=== PATIENT | female | born 1935 | race Caucasian/White ===

== ENCOUNTER 2016-09-12 09:38 | Inpatient (IN) | payer BC, MEDICARE ==
[~2016-09-12] VITALS: Ht 165.1 cm; Wt 102.8 kg
[2016-09-12] MEDS ORDERED: SODIUM CHLORIDE 0.9% 1,000 ML IV ONE (09:46)
[2016-09-12] MEDS ORDERED: PANTOPRAZOLE 80 MG in SODIUM CHLORIDE 0.9% 100 ML IV SCH (09:46)
[2016-09-12] MEDS ORDERED: PANTOPRAZOLE 80 MG in SODIUM CHLORIDE 0.9% 50 ML IVPB ONE (09:46)
[2016-09-12] MEDS ORDERED: BISO10TA10 PO (09:58)
[2016-09-12] MEDS ORDERED: RASA0.5T PO (09:58)
[2016-09-12] MEDS ORDERED: HYDR-3240 PO (09:58)
[2016-09-12] MEDS ORDERED: CARB1TAB47 PO (09:58)
[2016-09-12] MEDS ORDERED: CARB1TAB44 PO (09:58)
[2016-09-12] MEDS ORDERED: LEVO112T4 PO (09:58)
[2016-09-12] MEDS ORDERED: LAMO100T5 PO (09:58)
[2016-09-12] MEDS ORDERED: LEVE10007 PO (09:58)
[2016-09-12] MEDS ORDERED: ATOR20TA9 PO (09:58)
[2016-09-12] MEDS ORDERED: HYDR12.53 PO (09:58)
[2016-09-12] MEDS ORDERED: SODIUM CHLORIDE FLUSH 10ML SYR IVF ONE (10:00)
[2016-09-12 11:01] LABS: ASPARTATE AMINO TRANSFERASE 8 U/L (15-37); BLOOD UREA NITROGEN 17 mg/dL (7-18)
[2016-09-12] MEDS: PANTOPRAZOLE 80 MG in SODIUM CHLORIDE 0.9% 100 ML IV SCH (13:30)
[2016-09-12 13:35] VITALS: BP 131/77
[2016-09-12] MEDS: INSULIN REGULAR 100 UNITS/ML, 3ML VIAL SQ-INSULIN SCH ×2 (16:00→21:00)
[2016-09-12] MEDS: CARBIDOPA/LEVODOPA 25 MG/100 MG TABLET PO SCH ×2 (17:26→22:44)
[2016-09-12 19:23] VITALS: BP 125/61
[2016-09-12 21:03] VITALS: BP 131/77
[2016-09-12] MEDS: LAMOTRIGINE 100 MG TABLET PO SCH (22:38)
[2016-09-12] MEDS: HYDROcodone/APAP 5/325 TABLET PO PRN (22:38)
[2016-09-12] MEDS: LEVETIRACETAM 500 MG TABLET PO SCH (22:39)
[2016-09-12] MEDS: CARBIDOPA/LEVODOPA CR 50 MG/200 MG TABLET PO SCH (22:42)
[2016-09-13 00:51] VITALS: BP 96/59
[2016-09-13] MEDS: PANTOPRAZOLE 80 MG in SODIUM CHLORIDE 0.9% 100 ML IV SCH ×2 (04:32→18:39)
[2016-09-13] MEDS: CARBIDOPA/LEVODOPA 25 MG/100 MG TABLET PO SCH ×4 (06:11→22:06)
[2016-09-13] MEDS: INSULIN REGULAR 100 UNITS/ML, 3ML VIAL SQ-INSULIN SCH ×4 (07:00→21:00)
[2016-09-13 07:30] VITALS: BP 114/76
[2016-09-13] MEDS: RASAGILINE MESYLATE 1 MG HOMEMEDPO SCH (09:00)
[2016-09-13] MEDS: BISOPROLOL FUMARATE 5 MG HOMEMEDPO SCH (09:00)
[2016-09-13 09:16] LABS: BLOOD UREA NITROGEN 13 mg/dL (7-18)
[2016-09-13 09:20] LABS: ASPARTATE AMINO TRANSFERASE 10 U/L (15-37)
[2016-09-13] MEDS ORDERED: METOPROLOL TARTRATE 25 MG TABLET PO ONE (12:00)
[2016-09-13] MEDS ORDERED: METOCLOPRAMIDE 5 MG/ML, 2ML IV PRN (12:30)
[2016-09-13] MEDS ORDERED: LABETALOL 5MG/ML, 20ML IV PRN (12:30)
[2016-09-13] MEDS ORDERED: MEPERIDINE/PF 25MG/0.5ML IVPush PRN (12:30)
[2016-09-13] MEDS ORDERED: HYDROmorphone 1 MG/ML, 1ML IV PRN (12:30)
[2016-09-13] MEDS ORDERED: ACETAMINOPHEN 325 MG TABLET PO PRN (12:30)
[2016-09-13] MEDS ORDERED: FENTANYL PF 100 MCG/2ML IV PRN (12:30)
[2016-09-13] MEDS ORDERED: OXYcodone 5 MG/5 ML ORAL.SOL UDC PO PRN (12:30)
[2016-09-13] MEDS ORDERED: ONDANSETRON 2MG/ML, 2ML IVPush PRN (12:30)
[2016-09-13] MEDS ORDERED: PROMETHAZINE 25 MG/ML, 1ML IV PRN (12:30)
[2016-09-13] MEDS ORDERED: hydrALAzine 20 MG/ML, 1ML IV PRN (12:30)
[2016-09-13] MEDS ORDERED: MIDAZOLAM 1 MG/ML, 2ML IV PRN (12:30)
[2016-09-13] MEDS ORDERED: PROPOFOL 10 MG/ML, 20ML ONE (12:55)
[2016-09-13] MEDS: LEVOTHYROXINE 112 MCG TABLET PO SCH (14:46)
[2016-09-13] MEDS: LEVETIRACETAM 500 MG TABLET PO SCH ×2 (14:46→22:06)
[2016-09-13] MEDS: LAMOTRIGINE 100 MG TABLET PO SCH ×2 (14:46→22:06)
[2016-09-13 14:52] VITALS: BP 147/76
[2016-09-13] MEDS: HYDROcodone/APAP 5/325 TABLET PO PRN (16:26)
[2016-09-13] MEDS: CARBIDOPA/LEVODOPA CR 50 MG/200 MG TABLET PO SCH (22:06)
[2016-09-13 22:19] VITALS: BP 129/66
[2016-09-14 01:47] VITALS: BP 98/58
[2016-09-14] MEDS: CARBIDOPA/LEVODOPA 25 MG/100 MG TABLET PO SCH ×2 (04:27→09:59)
[2016-09-14] MEDS: LEVOTHYROXINE 112 MCG TABLET PO SCH (04:27)
[2016-09-14] MEDS: PANTOPRAZOLE 80 MG in SODIUM CHLORIDE 0.9% 100 ML IV SCH (04:27)
[2016-09-14 05:00] LABS: BLOOD UREA NITROGEN 11 mg/dL (7-18)
[2016-09-14] MEDS: INSULIN REGULAR 100 UNITS/ML, 3ML VIAL SQ-INSULIN SCH ×2 (07:00→12:09)
[2016-09-14] MEDS ORDERED: POTASSIUM CHLORIDE 20 MEQ TAB.ER.PRT PO ONE (07:30)
[2016-09-14] MEDS: HYDROcodone/APAP 5/325 TABLET PO PRN (08:11)
[2016-09-14 08:14] VITALS: BP 113/71
[2016-09-14] MEDS: RASAGILINE MESYLATE 1 MG HOMEMEDPO SCH (09:00)
[2016-09-14] MEDS: BISOPROLOL FUMARATE 5 MG HOMEMEDPO SCH (09:00)
[2016-09-14] MEDS: LEVETIRACETAM 500 MG TABLET PO SCH (09:58)
[2016-09-14] MEDS: LAMOTRIGINE 100 MG TABLET PO SCH (09:59)
[2016-09-14 13:04] VITALS: BP 104/68
[2016-09-14] MEDS ORDERED: PANT40TA3 PO (14:32)
== END 2016-09-14 17:27 | disposition home or self-care (01) | DRG 378 ==
LOC: ED 10:28 → EDIP 11:46 → 3NW 13:40
PROVIDERS: ADMIT Internal Medicine; ATTEND Internal Medicine
PROC: 0T9B70Z Drainage of Bladder with Drainage Device, Via Natural or Artificial Opening (ICD-10-PCS; 2016-09-12)
PROC: 0DB68ZX Excision of Stomach, Via Natural or Artificial Opening Endoscopic, Diagnostic (ICD-10-PCS; principal; 2016-09-13 12:30)
DX: K92.2 Gastrointestinal hemorrhage, unspecified (principal); K22.10 Ulcer of esophagus without bleeding; K44.9 Diaphragmatic hernia without obstruction or gangrene; D64.9 Anemia, unspecified; E03.9 Hypothyroidism, unspecified; E78.5 Hyperlipidemia, unspecified; I10 Essential (primary) hypertension; G20 Parkinson's disease; J44.9 Chronic obstructive pulmonary disease, unspecified; K21.0 Gastro-esophageal reflux disease with esophagitis; K22.2 Esophageal obstruction; K25.9 Gastric ulcer, unspecified as acute or chronic, without hemorrhage or perforation; R32 Unspecified urinary incontinence; K59.00 Constipation, unspecified; R56.9 Unspecified convulsions; R73.03 Prediabetes; Z83.2 Family history of diseases of the blood and blood-forming organs and certain disorders involving the immune mechanism; Z99.81 Dependence on supplemental oxygen; Z88.2 Allergy status to sulfonamides
CPT/HCPCS: 36415; 71010; 80048; 80053; 81003; 82962; 83605; 85014; 85018; 85025; 85610; 86850; 86900; 87040; 88305; 93005; 96365; J2704; C9113; J7030

== ENCOUNTER → 2017-07-05 | Outpatient (CLI) | payer MEDICARE ==
[~2017-07-05] MED LIST: ATOR20TA9 PO; BISO10TA10 PO; CARB1TAB44 PO; CARB1TAB47 PO; HYDR-3240 PO; HYDR12.53 PO; LAMO100T5 PO; LEVE10007 PO; LEVO112T4 PO; PANT40TA3 PO; PANT40TA5 PO; RASA0.5T PO
== END | disposition home or self-care (01) ==
LOC: RAD 09:45
PROVIDERS: ATTEND Nurse Practitioner Family
DX: R05 Cough (principal); R07.9 Chest pain, unspecified
CPT/HCPCS: 71046

== ENCOUNTER 2019-06-10 11:46 | Inpatient (IN) | payer MEDICARE ==
[~2019-06-10] VITALS: Ht 165.1 cm; Wt 91.1 kg
[~2019-06-10 11:46] MED LIST changes: +ATOR20TA37 PO; -ATOR20TA9 PO; +HYDR12.517 PO; -HYDR12.53 PO
[2019-06-10 12:15] LABS: BASOPHILS % (AUTO) 0 % (0-1); EOSINOPHILS # (AUTO) 0.15 x10^3/uL (0-0.4); EOSINOPHILS % (AUTO) 1 % (1-7); LYMPHOCYTES # (AUTO) 1.81 x10^3/uL (1-3.4); LYMPHOCYTES % (AUTO) 13 % (22-44); MD NO; MEAN CORPUSCULAR HEMOGLOBIN 28.3 pg (27.0-34.8); MEAN CORPUSCULAR HGB CONC 31.9 g/dL (32.4-35.8); MEAN CORPUSCULAR VOLUME 88.7 fL (80-100); MEAN PLATELET VOLUME 7.5 fL (7.4-10.4); MONOCYTES # (AUTO) 0.62 x10^3/uL (0.2-0.8); MONOCYTES % (AUTO) 4 % (2-9); NEUTROPHILS # (AUTO) 11.72 x10^3/uL (1.8-6.8); NEUTROPHILS % (AUTO) 82 % (42-75); PLATELET COUNT 330 x10^3/uL (130-400); RED BLOOD COUNT 4.69 x10^6/uL (3.82-5.3); RED CELL DISTRIBUTION WIDTH 15.9 % (9.6-15.2)
[2019-06-10 12:24] LABS: ALBUMIN 3.4 g/dL (3.4-5.0); ANION GAP 8 mmol/L (5-15); CHLORIDE 103 mmol/L (98-107); CREATININE 0.98 mg/dL (0.55-1.02)
[2019-06-10] MEDS ORDERED: HYDROcodone/APAP 5/325 TABLET ONE (13:11)
--- NOTE | 2019-06-10 13:13 | NUR ---
MEDICATED FOR ALL-OVER BODY PAIN PER ORDERS. BREATHING EVEN, UNLABORED AND IN NO DISTRESS. VISITOR AT BEDSIDE.
[2019-06-10] MEDS ORDERED: HYDROcodone/APAP 5/325 TABLET PO ONE (13:30)
--- NOTE | 2019-06-10 14:01 | NUR ---
BREAK RN: PT IS NOT READY FOR DISCHARGE. PT IS 82% RA. PT PLACED ON 3L NC PT IS NOW 95%. VS STABLE. FAMILY AT BEDSIDE. AWARE.
--- NOTE | 2019-06-10 14:16 | NUR ---
DR DINH IN ROOM TALKING WITH PATIENT
--- NOTE | 2019-06-10 14:23 | NUR ---
REPORT GIVEN TO SHANNON KHAN
[2019-06-10] MEDS ORDERED: ALBUTEROL/IPRATROPIUM 2.5MG/0.5MG, 3 ML NEB ONE (14:30)
--- NOTE | 2019-06-10 14:43 | NUR ---
PT AWAITING BREATHING TX FROM RT. PHARMACEUTICAL BOTANIST REMAINS AT BEDSIDE
[2019-06-10] MEDS ORDERED: ALBUTEROL/IPRATROPIUM 2.5MG/0.5MG, 3 ML ONE (15:00)
--- NOTE | 2019-06-10 15:25 | NUR ---
PT NEEDS IV FOR CT EXAM
--- NOTE | 2019-06-10 15:53 | NUR ---
AFTER BREATHING TREATMENT, OXYGEN SATURATION ON RA CHECK AND NOTED TO BE 85 PERCENT. INITIALLY PT RESISTANT TO ADMISSION BUT AFTER DISCUSSING IT WITH MD AND RN AND , PT CONCEDED TO ADMISSION. IV ESTABLISHED FOR CT
[2019-06-10] MEDS ORDERED: CARBIDOPA/LEVODOPA 25 MG/100 MG TABLET PO ONE (16:30)
--- NOTE | 2019-06-10 16:51 | NUR ---
WHILE AT CT STARTED A NEW LINE AT RIGHT AC NOTED LAC IV NOT FLUSHING WELL.
[2019-06-10] MEDS ORDERED: METF500T17 PO (17:08)
[2019-06-10] MEDS ORDERED: POTA10PI2 PO (17:08)
[2019-06-10] MEDS ORDERED: RASA1TAB2 PO (17:08)
[2019-06-10] MEDS ORDERED: LEVO125T5 PO (17:08)
--- NOTE | 2019-06-10 17:32 | NUR ---
UPON RETURN FROM CT MEDICATED PER JUL FOR PARKINSON'S.
--- NOTE | 2019-06-10 18:00 | NUR ---
BRIEFS REMOVED AND PUREWICK PLACED. AT BEDSIDE.
--- NOTE | 2019-06-10 18:22 | NUR ---
REPORT TO JOY ORTEGA. PT TO BE TRANSFERRED TO FLOOR
[2019-06-10] MEDS ORDERED: HYDROcodone/APAP 5/325 TABLET PO PRN (18:30)
[2019-06-10] MEDS ORDERED: BISACODYL 10 MG SUPP PR PRN (18:30)
[2019-06-10] MEDS ORDERED: POLYETHYLENE GLYCOL 17 GM PACKET PO PRN (18:30)
[2019-06-10] MEDS ORDERED: ONDANSETRON ODT 4 MG PO PRN (18:30)
[2019-06-10] MEDS ORDERED: ACETAMINOPHEN 325 MG TABLET PO PRN (18:30)
[2019-06-10] MEDS ORDERED: OMNIPAQUE 350 MG/ML, 100ML BOTTLE ONE (19:15)
[2019-06-10 20:32] VITALS: BP 117/66
[2019-06-10] MEDS: metFORMIN 500 MG TABLET PO SCH (21:00)
[2019-06-10] MEDS: LEVETIRACETAM 500 MG TABLET PO SCH (21:16)
[2019-06-10] MEDS: HEPARIN 5,000 UNITS/ML, 1ML SQ SCH (21:17)
[2019-06-10] MEDS: LAMOTRIGINE 100 MG TABLET PO SCH (21:17)
[2019-06-10] MEDS: ATORVASTATIN 20 MG TABLET PO SCH (21:17)
[2019-06-10] MEDS: SODIUM CHLORIDE FLUSH 10ML SYR IVF SCH (21:19)
[2019-06-10] MEDS: CARBIDOPA/LEVODOPA CR 50 MG/200 MG TABLET PO SCH (21:22)
[2019-06-10] MEDS: CARBIDOPA/LEVODOPA 25 MG/100 MG TABLET PO SCH (21:22)
[2019-06-11] MEDS: HYDROcodone/APAP 5/325 TABLET PO PRN ×5 (00:41→20:27)
[2019-06-11 02:07] VITALS: BP 106/65
[2019-06-11] MEDS ORDERED: ALBUTEROL SULFATE 2.5 MG/3 ML NPPB PRN (04:30)
[2019-06-11] MEDS: HEPARIN 5,000 UNITS/ML, 1ML SQ SCH ×3 (05:12→20:26)
[2019-06-11] MEDS: CARBIDOPA/LEVODOPA 25 MG/100 MG TABLET PO SCH ×4 (06:06→20:27)
[2019-06-11 06:32] LABS: BASOPHILS # (AUTO) 0.04 x10^3/uL (0-0.1); BASOPHILS % (AUTO) 0 % (0-1); EOSINOPHILS # (AUTO) 0.09 x10^3/uL (0-0.4); EOSINOPHILS % (AUTO) 1 % (1-7); LYMPHOCYTES # (AUTO) 2.14 x10^3/uL (1-3.4); LYMPHOCYTES % (AUTO) 16 % (22-44); MD NO; MEAN CORPUSCULAR HEMOGLOBIN 28.5 pg (27.0-34.8); MEAN CORPUSCULAR HGB CONC 31.8 g/dL (32.4-35.8); MEAN CORPUSCULAR VOLUME 89.9 fL (80-100); MEAN PLATELET VOLUME 7.7 fL (7.4-10.4); MONOCYTES # (AUTO) 0.64 x10^3/uL (0.2-0.8); MONOCYTES % (AUTO) 5 % (2-9); NEUTROPHILS # (AUTO) 10.09 x10^3/uL (1.8-6.8); NEUTROPHILS % (AUTO) 78 % (42-75); PLATELET COUNT 291 x10^3/uL (130-400); RED BLOOD COUNT 4.28 x10^6/uL (3.82-5.3); RED CELL DISTRIBUTION WIDTH 15.7 % (9.6-15.2)
[2019-06-11 06:46] LABS: ANION GAP 10 mmol/L (5-15); CALCIUM 8.7 mg/dL (8.5-10.1); CHLORIDE 100 mmol/L (98-107); CREATININE 0.91 mg/dL (0.55-1.02)
[2019-06-11] MEDS ORDERED: ACETAMINOPHEN 325 MG TABLET PO PRN (07:30)
[2019-06-11 07:56] VITALS: BP 119/71
[2019-06-11] MEDS: SODIUM CHLORIDE FLUSH 10ML SYR IVF SCH ×2 (09:00→20:27)
[2019-06-11] MEDS: RASAGILINE MESYLATE 0.5 MG HOMEMEDPO SCH (09:00)
[2019-06-11] MEDS ORDERED: HYDROCHLOROTHIAZIDE 12.5 MG CAPSULE PO SCH (09:00)
[2019-06-11] MEDS: SENNA/DOCUSATE TABLET PO SCH (10:51)
[2019-06-11] MEDS: metFORMIN 500 MG TABLET PO SCH ×2 (10:51→19:28)
[2019-06-11] MEDS: LEVETIRACETAM 500 MG TABLET PO SCH ×2 (10:51→20:26)
[2019-06-11] MEDS: ATENOLOL 50 MG TABLET PO SCH (10:51)
[2019-06-11] MEDS: LAMOTRIGINE 100 MG TABLET PO SCH ×2 (10:51→20:26)
[2019-06-11] MEDS: LEVOTHYROXINE 125 MCG TABLET PO SCH (10:52)
[2019-06-11] MEDS: LACTOBACILLUS CHEW TABLET PO SCH ×3 (10:52→20:26)
[2019-06-11] MEDS: PANTOPROZOLE 40MG TABLET PO SCH (10:52)
[2019-06-11] MEDS: INSULIN LISPRO 100 UNITS/ML, PEN SQ-INSULIN SCH ×3 (11:00→20:22)
[2019-06-11 13:50] VITALS: BP 120/70
[2019-06-11 14:28] LABS: TROPONIN I < 0.015 ng/mL (0.000-0.045)
[2019-06-11 18:27] VITALS: BP 127/74
[2019-06-11] MEDS: ATORVASTATIN 20 MG TABLET PO SCH (20:26)
[2019-06-11] MEDS: CARBIDOPA/LEVODOPA CR 50 MG/200 MG TABLET PO SCH (20:26)
[2019-06-12 00:52] VITALS: BP 107/55
[2019-06-12] MEDS: HYDROcodone/APAP 5/325 TABLET PO PRN ×5 (02:27→20:15)
[2019-06-12] MEDS: GUAIFENESIN/DM 200-20MG, 10ML UDC PO PRN ×3 (02:27→22:14)
[2019-06-12] MEDS: HEPARIN 5,000 UNITS/ML, 1ML SQ SCH ×3 (05:00→22:14)
[2019-06-12] MEDS: LEVOTHYROXINE 125 MCG TABLET PO SCH (05:06)
[2019-06-12] MEDS: CARBIDOPA/LEVODOPA 25 MG/100 MG TABLET PO SCH ×4 (05:07→20:14)
[2019-06-12] MEDS: metFORMIN 500 MG TABLET PO SCH ×3 (05:19→20:42)
[2019-06-12] MEDS: PANTOPROZOLE 40MG TABLET PO SCH (05:28)
[2019-06-12] MEDS: LEVETIRACETAM 500 MG TABLET PO SCH ×2 (05:28→20:15)
[2019-06-12] MEDS: LACTOBACILLUS CHEW TABLET PO SCH ×3 (05:28→20:14)
[2019-06-12] MEDS: SENNA/DOCUSATE TABLET PO SCH (05:28)
[2019-06-12] MEDS: ATENOLOL 50 MG TABLET PO SCH (05:29)
[2019-06-12] MEDS: LAMOTRIGINE 100 MG TABLET PO SCH ×2 (05:29→20:15)
[2019-06-12] MEDS: RASAGILINE MESYLATE 0.5 MG HOMEMEDPO SCH (05:29)
[2019-06-12] MEDS: INSULIN LISPRO 100 UNITS/ML, PEN SQ-INSULIN SCH ×4 (07:00→20:32)
[2019-06-12 07:06] LABS: ANION GAP 8 mmol/L (5-15); CALCIUM 8.5 mg/dL (8.5-10.1); CHLORIDE 103 mmol/L (98-107); CREATININE 0.92 mg/dL (0.55-1.02)
[2019-06-12 07:31] VITALS: BP 107/67
[2019-06-12 09:24] LABS: BASOPHILS # (AUTO) 0.04 x10^3/uL (0-0.1); BASOPHILS % (AUTO) 0 % (0-1); EOSINOPHILS # (AUTO) 0.24 x10^3/uL (0-0.4); EOSINOPHILS % (AUTO) 3 % (1-7); LYMPHOCYTES # (AUTO) 1.66 x10^3/uL (1-3.4); LYMPHOCYTES % (AUTO) 17 % (22-44); MD NO; MEAN CORPUSCULAR HEMOGLOBIN 29.1 pg (27.0-34.8); MEAN CORPUSCULAR HGB CONC 32.3 g/dL (32.4-35.8); MEAN PLATELET VOLUME 7.9 fL (7.4-10.4); MONOCYTES # (AUTO) 0.42 x10^3/uL (0.2-0.8); MONOCYTES % (AUTO) 4 % (2-9); NEUTROPHILS # (AUTO) 7.21 x10^3/uL (1.8-6.8); NEUTROPHILS % (AUTO) 75 % (42-75); PLATELET COUNT 282 x10^3/uL (130-400); RED BLOOD COUNT 4.19 x10^6/uL (3.82-5.3); RED CELL DISTRIBUTION WIDTH 15.5 % (9.6-15.2)
[2019-06-12] MEDS: SODIUM CHLORIDE 0.9% 1,000 ML IV SCH (09:45)
[2019-06-12] MEDS: SODIUM CHLORIDE FLUSH 10ML SYR IVF SCH ×2 (09:47→20:22)
[2019-06-12 12:57] LABS: RAPID INFLUENZA A Negative (Negative); RAPID INFLUENZA B Negative (Negative)
[2019-06-12 14:40] VITALS: BP 104/67
[2019-06-12 18:54] VITALS: BP 125/81
[2019-06-12] MEDS: ATORVASTATIN 20 MG TABLET PO SCH (20:14)
[2019-06-12] MEDS: CARBIDOPA/LEVODOPA CR 50 MG/200 MG TABLET PO SCH (22:14)
[2019-06-13 02:00] VITALS: BP 112/72
[2019-06-13] MEDS: SODIUM CHLORIDE 0.9% 1,000 ML IV SCH ×2 (02:38→19:33)
[2019-06-13] MEDS: HYDROcodone/APAP 5/325 TABLET PO PRN ×5 (03:27→23:37)
[2019-06-13] MEDS: GUAIFENESIN/DM 200-20MG, 10ML UDC PO PRN (04:11)
[2019-06-13] MEDS: RASAGILINE MESYLATE 0.5 MG HOMEMEDPO SCH (06:00)
[2019-06-13] MEDS: HEPARIN 5,000 UNITS/ML, 1ML SQ SCH ×2 (06:08→16:23)
[2019-06-13 06:11] LABS: BASOPHILS # (AUTO) 0.03 x10^3/uL (0-0.1); BASOPHILS % (AUTO) 0 % (0-1); EOSINOPHILS # (AUTO) 0.39 x10^3/uL (0-0.4); EOSINOPHILS % (AUTO) 4 % (1-7); LYMPHOCYTES # (AUTO) 1.86 x10^3/uL (1-3.4); LYMPHOCYTES % (AUTO) 20 % (22-44); MD NO; MEAN CORPUSCULAR HEMOGLOBIN 28.7 pg (27.0-34.8); MEAN CORPUSCULAR HGB CONC 32.3 g/dL (32.4-35.8); MEAN CORPUSCULAR VOLUME 88.8 fL (80-100); MEAN PLATELET VOLUME 7.8 fL (7.4-10.4); MONOCYTES # (AUTO) 0.53 x10^3/uL (0.2-0.8); MONOCYTES % (AUTO) 6 % (2-9); NEUTROPHILS # (AUTO) 6.42 x10^3/uL (1.8-6.8); NEUTROPHILS % (AUTO) 70 % (42-75); PLATELET COUNT 280 x10^3/uL (130-400); RED BLOOD COUNT 4.14 x10^6/uL (3.82-5.3); RED CELL DISTRIBUTION WIDTH 15.8 % (9.6-15.2)
[2019-06-13] MEDS: LAMOTRIGINE 100 MG TABLET PO SCH ×2 (06:20→20:38)
[2019-06-13] MEDS: PANTOPROZOLE 40MG TABLET PO SCH (06:21)
[2019-06-13] MEDS: LEVETIRACETAM 500 MG TABLET PO SCH ×2 (06:21→20:38)
[2019-06-13] MEDS: SENNA/DOCUSATE TABLET PO SCH (06:21)
[2019-06-13] MEDS: ATENOLOL 50 MG TABLET PO SCH (06:21)
[2019-06-13] MEDS: LEVOTHYROXINE 125 MCG TABLET PO SCH (06:22)
[2019-06-13] MEDS: LACTOBACILLUS CHEW TABLET PO SCH ×3 (06:22→20:38)
[2019-06-13] MEDS: CARBIDOPA/LEVODOPA 25 MG/100 MG TABLET PO SCH ×4 (06:22→20:38)
[2019-06-13 06:39] VITALS: BP 108/68
[2019-06-13] MEDS: INSULIN LISPRO 100 UNITS/ML, PEN SQ-INSULIN SCH ×4 (07:00→19:43)
[2019-06-13] MEDS: SODIUM CHLORIDE FLUSH 10ML SYR IVF SCH ×2 (07:43→19:42)
[2019-06-13] MEDS: metFORMIN 500 MG TABLET PO SCH ×2 (10:13→20:38)
[2019-06-13 12:25] VITALS: BP 115/74
[2019-06-13 18:49] VITALS: BP 123/78
[2019-06-13] MEDS: ATORVASTATIN 20 MG TABLET PO SCH (20:38)
[2019-06-13] MEDS: CARBIDOPA/LEVODOPA CR 50 MG/200 MG TABLET PO SCH ×2 (21:00→23:37)
[2019-06-14 00:20] VITALS: BP 114/75
[2019-06-14] MEDS: HEPARIN 5,000 UNITS/ML, 1ML SQ SCH ×4 (00:30→17:38)
[2019-06-14] MEDS: GUAIFENESIN/DM 200-20MG, 10ML UDC PO PRN (00:55)
[2019-06-14] MEDS: CARBIDOPA/LEVODOPA 25 MG/100 MG TABLET PO SCH ×3 (05:21→13:50)
[2019-06-14] MEDS: HYDROcodone/APAP 5/325 TABLET PO PRN ×3 (05:21→13:56)
[2019-06-14] MEDS: LEVOTHYROXINE 125 MCG TABLET PO SCH (05:21)
[2019-06-14] MEDS: LAMOTRIGINE 100 MG TABLET PO SCH (08:02)
[2019-06-14] MEDS: LEVETIRACETAM 500 MG TABLET PO SCH (08:02)
[2019-06-14] MEDS: ATENOLOL 50 MG TABLET PO SCH (08:02)
[2019-06-14] MEDS: metFORMIN 500 MG TABLET PO SCH (08:02)
[2019-06-14] MEDS: SENNA/DOCUSATE TABLET PO SCH (08:02)
[2019-06-14] MEDS: PANTOPROZOLE 40MG TABLET PO SCH (08:02)
[2019-06-14] MEDS: LACTOBACILLUS CHEW TABLET PO SCH ×2 (08:02→17:37)
[2019-06-14] MEDS: SODIUM CHLORIDE FLUSH 10ML SYR IVF SCH (08:03)
[2019-06-14] MEDS: INSULIN LISPRO 100 UNITS/ML, PEN SQ-INSULIN SCH ×3 (08:03→17:00)
[2019-06-14 08:04] VITALS: BP 130/80
[2019-06-14] MEDS: RASAGILINE MESYLATE 0.5 MG HOMEMEDPO SCH (08:12)
[2019-06-14] MEDS ORDERED: INSU100I11 SQ-INSULIN (09:39)
[2019-06-14] MEDS ORDERED: BISA10SU4 PR (09:39)
[2019-06-14] MEDS ORDERED: SENN-193 PO (09:39)
[2019-06-14] MEDS ORDERED: ACID1TAB7 PO (09:39)
[2019-06-14] MEDS ORDERED: MAGNESIUM CITRATE 300ML ORAL SOL PO ONE (10:00)
[2019-06-14] MEDS: SODIUM CHLORIDE 0.9% 1,000 ML IV SCH (12:05)
[2019-06-14 14:19] VITALS: BP 131/57
== END 2019-06-14 18:13 | disposition home or self-care (01) | DRG 189 ==
LOC: ED 12:10 → EDIP 17:22 → 3N 19:00
PROVIDERS: ADMIT Emergency Medicine; ATTEND Emergency Medicine
DX: J96.21 Acute and chronic respiratory failure with hypoxia (principal); J44.1 Chronic obstructive pulmonary disease with (acute) exacerbation; J98.11 Atelectasis; D72.829 Elevated white blood cell count, unspecified; E03.9 Hypothyroidism, unspecified; E11.9 Type 2 diabetes mellitus without complications; E66.9 Obesity, unspecified; E78.5 Hyperlipidemia, unspecified; G20 Parkinson's disease; G40.909 Epilepsy, unspecified, not intractable, without status epilepticus; G47.00 Insomnia, unspecified; I10 Essential (primary) hypertension; K59.00 Constipation, unspecified; Z66 Do not resuscitate; Z82.49 Family history of ischemic heart disease and other diseases of the circulatory system; Z88.2 Allergy status to sulfonamides; Z85.038 Personal history of other malignant neoplasm of large intestine; Z68.33 Body mass index [BMI] 33.0-33.9, adult; Z90.710 Acquired absence of both cervix and uterus
CPT/HCPCS: 36415; 36600; 71045; 71275; 80048; 82040; 82803; 82962; 83036; 83880; 84484; 85025; 87400; 93005; 99285; G0378; J1644; Q9967; J1815; J7030

== ENCOUNTER → 2019-06-27 | Outpatient (CLI) | payer MEDICARE ==
[~2019-06-27] MED LIST changes: +ACID1TAB7 PO; +ALBU90AE2 INH; +BISA10SU4 PR; +GUAI200T37 PO; +INSU100I11 SQ-INSULIN; +LEVE100020 PO; +LEVO125T5 PO; +LOSA25TA25 PO; +METF500T17 PO; +OMNIPAQUE 350 MG/ML, 100ML BOTTLE ONE; +POTA10PI2 PO; +PRED10TA PO; +RASA1TAB2 PO; +SENN-193 PO; +TIOT18CA INH
== END | disposition home or self-care (01) ==
LOC: CFH 13:06
PROVIDERS: ATTEND Internal Medicine
DX: K76.0 Fatty (change of) liver, not elsewhere classified (principal); J98.11 Atelectasis; K80.20 Calculus of gallbladder without cholecystitis without obstruction; M51.36 Other intervertebral disc degeneration, lumbar region
CPT/HCPCS: 74160; Q9967

== ENCOUNTER 2019-11-07 21:59 | Emergency (ER) | payer MEDICARE ==
[~2019-11-07] VITALS: Ht 165.1 cm; Wt 100.0 kg
[~2019-11-07 21:59] MED LIST changes: -OMNIPAQUE 350 MG/ML, 100ML BOTTLE ONE
--- NOTE | 2019-11-07 22:51 | NUR ---
TASK RN: PT. TO ROOM FROM LOBBY AT THIS TIME.
--- NOTE | 2019-11-07 23:08 | NUR ---
PT STATES SHE'S BEEN TAKING NORCO FOR YEARS BUT SHE'S OUT OF IT, AND SHE DOESN'T HAVE AN APPOINTMENT WITH HER MD UNTIL THE .
--- NOTE | 2019-11-07 23:19 | NUR ---
ERP WAS IN TO SEE PT.
[2019-11-07] MEDS ORDERED: LIDOCAINE 1%, 10ML INFIL ONE (23:30)
[2019-11-07] MEDS ORDERED: HYDROcodone/APAP 5/325 TABLET PO ONE (23:30)
[2019-11-07] MEDS ORDERED: TRIAMCINOLONE ACETONIDE 40 MG/ML, 1ML MC ONE (23:30)
[2019-11-07] MEDS ORDERED: LIDOCAINE-MPF 1%, 5ML ONE (23:36)
[2019-11-07] MEDS ORDERED: HYDROcodone/APAP 5/325 TABLET ONE (23:36)
--- NOTE | 2019-11-07 23:45 | NUR ---
PT MEDICATED WITH NORCO PER ORDERS. UNDERSTANDS POC. AWAITING STEROID FROM PHARMACY. AT BS.
--- NOTE | 2019-11-07 23:59 | NUR ---
REPORT FROM SHANNON CHAMPAGNE
--- NOTE | 2019-11-07 23:59 | NUR ---
REPORTED TO YURIY ORTEGA.
[2019-11-08 00:41] VITALS: BP 115/63
== END 2019-11-08 00:52 | disposition home or self-care (01) ==
LOC: ED 23:44
DX: M19.012 Primary osteoarthritis, left shoulder (principal); I10 Essential (primary) hypertension; E11.9 Type 2 diabetes mellitus without complications; E03.9 Hypothyroidism, unspecified; G20 Parkinson's disease
CPT/HCPCS: 20611; 99284

== ENCOUNTER 2019-11-27 11:41 | Emergency (ER) | payer MEDICARE ==
[~2019-11-27] VITALS: Ht 165.1 cm; Wt 88.4 kg
[~2019-11-27 11:41] MED LIST changes: -PANT40TA5 PO; +PANT40TA6 PO
--- NOTE | 2019-11-27 12:13 | NUR ---
PT CAME IN CO OF PAIN IN HER "PRIVATE AREA". ITS SHARP PAIN. PT NEEDS TO BE STRAIGHT CATHED AND HAS REQUESTED A FEMALE RN. PT ALSO REQUESTED TO BE SEDATED FOR CATH. PT BECAME UPSET WHEN SHE WAS TOLD SHE WOULD NOT BE SEDATED.
[2019-11-27 12:16] LABS: BASOPHILS # (AUTO) 0.04 x10^3/uL (0-0.1); BASOPHILS % (AUTO) 1 % (0-1); EOSINOPHILS # (AUTO) 0.25 x10^3/uL (0-0.4); EOSINOPHILS % (AUTO) 3 % (1-7); LYMPHOCYTES # (AUTO) 2.59 x10^3/uL (1-3.4); LYMPHOCYTES % (AUTO) 29 % (22-44); MD NO; MEAN CORPUSCULAR HEMOGLOBIN 27.8 pg (27.0-34.8); MEAN PLATELET VOLUME 7.4 fL (7.4-10.4); MONOCYTES # (AUTO) 0.45 x10^3/uL (0.2-0.8); MONOCYTES % (AUTO) 5 % (2-9); NEUTROPHILS % (AUTO) 63 % (42-75); PLATELET COUNT 334 x10^3/uL (130-400); RED BLOOD COUNT 4.53 x10^6/uL (3.82-5.3); RED CELL DISTRIBUTION WIDTH 14.8 % (9.6-15.2)
--- NOTE | 2019-11-27 12:33 | NUR ---
TASK RN: ATTEMPT AT GETTING STRAIGHT CATH URINE. PT NOTED TO HAVE EXTREMELY RED AND EXCORIATED PERINEAL AREA. PT NOTED TO HAVE DRY FECES ON PUBIC HAIR. PT STATES "IT HURTS TOO MUCH I DON'T LET ANYONE TRY AND CLEAN IT". CLEANSED PT ALISIA AREA. ATTEMPTED TO GET STRIAHGT CATH UA W/O SUCCESS. PT LEGS VERY TIGHT AGAINST PUBIC AREA SECONDARY TO PAIN. PT EDUCATED ON NEED TO ATTEMPT AGAIN FOR A STRAIGHT CATH UA. PT REFUSING DESPITE EDUCATION STATING "THE DR SAID YOU CAN GET URINE ANOTHER WAY DON'T YOU DARE TELL ME HE CAN'T. I WON'T LET YOU TOUCH ME THERE AGAIN". PT POSITIONED FOR COMFORT. INFORMATION RELAYED TO CARLO, PRIMARY RN AND ERP DR. BELCHER.
[2019-11-27] MEDS ORDERED: FLUCONAZOLE 100 MG TABLET ONE (12:46)
[2019-11-27] MEDS ORDERED: HYDROmorphone 1 MG/ML, 1ML INJ ONE (12:46)
[2019-11-27] MEDS ORDERED: ONDANSETRON 2MG/ML, 2ML ONE (12:47)
[2019-11-27 12:52] LABS: ALBUMIN 3.8 g/dL (3.4-5.0); ANION GAP 7 mmol/L (5-15); CHLORIDE 106 mmol/L (98-107)
[2019-11-27 12:57] LABS: ALANINE AMINOTRANSFERASE 8 U/L (12-78); ALKALINE PHOSPHATASE 108 U/L (45-117); BILIRUBIN,TOTAL 0.5 mg/dL (0.2-1.0); CREATININE 0.87 mg/dL (0.55-1.02); TOTAL PROTEIN 7.6 g/dL (6.4-8.2)
[2019-11-27] MEDS ORDERED: OMNIPAQUE 350 MG/ML, 100ML BOTTLE ONE (13:00)
[2019-11-27] MEDS ORDERED: SODIUM CHLORIDE FLUSH 10ML SYR IVF ONE (13:00)
[2019-11-27] MEDS ORDERED: FLUCONAZOLE 50 MG TABLET PO ONE (13:00)
[2019-11-27] MEDS ORDERED: HYDROmorphone 2 MG/ML, 1ML IVPush PRN (13:00)
[2019-11-27] MEDS ORDERED: ONDANSETRON 2MG/ML, 2ML IVPush ONE (13:00)
[2019-11-27 13:51] VITALS: BP 129/81
--- NOTE | 2019-11-27 13:51 | NUR ---
PT BACK FROM CT. RESTING IN [facility]. AWAITING CT RESULTS. PT PLACED ON 2 LITERS VIA NC.
== END 2019-11-27 14:47 | disposition home or self-care (01) ==
LOC: ED 13:10
DX: B37.3 Candidiasis of vulva and vagina (principal); R10.2 Pelvic and perineal pain; I10 Essential (primary) hypertension; E11.9 Type 2 diabetes mellitus without complications; J44.9 Chronic obstructive pulmonary disease, unspecified; E03.9 Hypothyroidism, unspecified
CPT/HCPCS: 36415; 74177; 80053; 83605; 85025; 96374; 96375; 99285; J1170; J2405; Q9967

== ENCOUNTER 2020-02-04 15:39 | Emergency (ER) | payer MEDICARE ==
[~2020-02-04] VITALS: Ht 165.1 cm; Wt 82.0 kg
[2020-02-04 15:43] VITALS: BP 117/67
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
[2020-02-04] MEDS ORDERED: HYDROcodone/APAP 5/325 TABLET PO ONE (16:30)
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
[2020-02-04] MEDS ORDERED: HYDROcodone/APAP 5/325 TABLET ONE (16:49)
--- NOTE | 2020-02-04 16:53 | NUR ---
ERICK GIVEN. SPOUSE AT BS.
--- NOTE | 2020-02-04 17:05 | NUR ---
DR DINH AT . PT YELLING AND CRYING. SPOUSE IN ROOM.
--- NOTE | 2020-02-04 17:32 | NUR ---
PT REPORT TO WANDY RANDLE RN. PT CARE TRANSFERRED
== END 2020-02-04 18:16 | disposition home or self-care (01) ==
LOC: ED 16:31
DX: S16.1XXA Strain of muscle, fascia and tendon at neck level, initial encounter (principal); I10 Essential (primary) hypertension; V49.59XA Passenger injured in collision with other motor vehicles in traffic accident, initial encounter; Y93.89 Activity, other specified; Y92.410 Unspecified street and highway as the place of occurrence of the external cause; Y99.8 Other external cause status
CPT/HCPCS: 99283

== ENCOUNTER 2020-11-27 06:00 | Emergency (ER) | payer MEDICARE ==
[~2020-11-27] VITALS: Ht 172.7 cm; Wt 90.0 kg
[~2020-11-27 06:00] MED LIST changes: +HYDR-2214 PO; -HYDR-3240 PO
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
[2020-11-27] MEDS ORDERED: SODIUM CHLORIDE FLUSH 10ML SYR IVF ONE (06:30)
--- NOTE | 2020-11-27 06:30 | NUR ---
ATTEMPTED TO STRAIGHT CATH PATIENT REFUSED. ERP AWARE.
[2020-11-27 06:43] LABS: BASOPHILS % (AUTO) 1 % (0-1); EOSINOPHILS % (AUTO) 6 % (1-7); LYMPHOCYTES % (AUTO) 24 % (22-44); MEAN CORPUSCULAR HEMOGLOBIN 27.2 pg (27.0-34.8); MEAN CORPUSCULAR HGB CONC 32.1 g/dL (32.4-35.8); MEAN PLATELET VOLUME 7.1 fL (7.4-10.4); MONOCYTES % (AUTO) 5 % (2-9); NEUTROPHILS % (AUTO) 65 % (42-75); PLATELET COUNT 353 x10^3/uL (130-400); RED BLOOD COUNT 4.51 x10^6/uL (3.82-5.3); RED CELL DISTRIBUTION WIDTH 14.9 % (9.6-15.2)
--- NOTE | 2020-11-27 06:45 | NUR ---
PUREWICK PLACED AT THIS TIME FOR URINE SAMPLE. PATIENT INSRUCTED TO PEE WHEN ABLE.
[2020-11-27 06:53] LABS: ALANINE AMINOTRANSFERASE 12 U/L (12-78); ALBUMIN 3.2 g/dL (3.4-5.0); ANION GAP 4 mmol/L (5-15); CALCIUM 8.9 mg/dL (8.5-10.1); CHLORIDE 105 mmol/L (98-107); CREATININE 0.78 mg/dL (0.55-1.02)
[2020-11-27 06:57] LABS: ALKALINE PHOSPHATASE 113 U/L (45-117); BILIRUBIN,TOTAL 0.4 mg/dL (0.2-1.0); TOTAL PROTEIN 7.1 g/dL (6.4-8.2); TROPONIN I < 0.015 ng/mL (0.000-0.045)
--- NOTE | 2020-11-27 07:02 | NUR ---
REPORT GIVEN TO SHANNON BAIG
--- NOTE | 2020-11-27 07:07 | NUR ---
ASSUMING CARE OF PT AFTER BEDSIDE REPORT FROM SAMIR ALDRICH RN. PT SITTING UP IN BED WITH AT BEDSIDE. VSS.
--- NOTE | 2020-11-27 07:12 | NUR ---
THIS RN ATTEMPTED TO OBTAIN UA VIA STRAIGHT CATH AND PLACE PIV ORDERED. PT REFUSED. DR. COFFMAN AWARE. PT ALSO REFUSING THIS RN TO REPOSTION AND CLEAN AT THIS TIME. WILL CONTINUE TO MONITOR.
[2020-11-27] MEDS ORDERED: HYDROcodone/APAP 5/325 TABLET PO ONE (07:30)
[2020-11-27] MEDS ORDERED: HYDROcodone/APAP 5/325 TABLET ONE (08:01)
--- NOTE | 2020-11-27 08:06 | NUR ---
PT MEDICATED PER EMAR FOR PAIN. VSS. NADN. AT BEDSIDE.
--- NOTE | 2020-11-27 08:29 | NUR ---
UA COLLECTED FROM JOSEPH RAMOS.
[2020-11-27 08:48] LABS: MICROSCOPIC INDICATED
[2020-11-27 09:31] VITALS: BP 141/68
--- NOTE | 2020-11-27 09:32 | NUR ---
Patient and Caregiver given discharge instructions and they have confirmed that they understand the instructions. Patient to d/c with wheelchair. NAD, all questions answered appropriately, denies additional needs at this time. No personal belongings left in room after discharge.
== END 2020-11-27 09:34 | disposition home or self-care (01) ==
LOC: ED 07:52
DX: G20 Parkinson's disease (principal); M79.10 Myalgia, unspecified site; R00.0 Tachycardia, unspecified; I10 Essential (primary) hypertension; E11.9 Type 2 diabetes mellitus without complications; J44.9 Chronic obstructive pulmonary disease, unspecified; E03.9 Hypothyroidism, unspecified; Z88.2 Allergy status to sulfonamides
CPT/HCPCS: 36415; 71045; 80053; 81001; 84484; 85025; 87086; 93005; 99285

== ENCOUNTER 2020-12-14 14:58 | Emergency (ER) | payer MEDICARE ==
[~2020-12-14] VITALS: Ht 165.1 cm; Wt 80.0 kg
--- NOTE | 2020-12-14 15:24 | NUR ---
PT BIB [facility] FROM RETIREMENT ([address] PT STATES BILAT LE PAIN. STATES HX OF SAME. PT IN SOILED BRIEF WHEN ARRIVED. PT ALISIA CARE DONE, BRIEF CHANGED. PT AWAITING ERMD ASSESSMENT.
[2020-12-14] MEDS ORDERED: HYDROmorphone 1 MG/ML, 1ML INJ IM ONE (16:00)
[2020-12-14 16:17] LABS: BASOPHILS % (AUTO) 1 % (0-1); EOSINOPHILS % (AUTO) 3 % (1-7); LYMPHOCYTES % (AUTO) 34 % (22-44); MEAN CORPUSCULAR HEMOGLOBIN 27.1 pg (27.0-34.8); MEAN PLATELET VOLUME 7.2 fL (7.4-10.4); MONOCYTES % (AUTO) 6 % (2-9); NEUTROPHILS % (AUTO) 56 % (42-75); PLATELET COUNT 340 x10^3/uL (130-400); RED BLOOD COUNT 4.49 x10^6/uL (3.82-5.3); RED CELL DISTRIBUTION WIDTH 15.2 % (9.6-15.2)
[2020-12-14 16:18] LABS: HCT (SEDRATE) 37.7 % (34.6-47.8)
[2020-12-14] MEDS ORDERED: HYDROmorphone 2 MG/ML, 1ML ONE (16:18)
[2020-12-14 16:19] LABS: ALBUMIN 3.3 g/dL (3.4-5.0); ANION GAP 5 mmol/L (5-15); C-REACTIVE PROTEIN, QUANT 0.43 mg/dL (0.02-0.49); CALCIUM 8.9 mg/dL (8.5-10.1); CHLORIDE 106 mmol/L (98-107); CREATININE 0.78 mg/dL (0.55-1.02)
--- NOTE | 2020-12-14 16:26 | NUR ---
PT MEDICATED FOR PAIN PER ORDERS. PT'S FAMILY NOW AT BEDSIDE, STATES ABLE TO TAKE PT HOME IF D/C. SPOKE WITH PT'S FAMILY MEMEBER, HE IS REQUESTING TO SPEAK WITH SW ABOUT NEW PT PLACEMENT. ERMD AND SW AWARE, WILL SEE PT. NO DISTRESS, CONT TO MONITOR.
--- NOTE | 2020-12-14 17:15 | NUR ---
PT GIVEN MEAL TRAY. REMAINS AT BEDSIDE.
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
[2020-12-14 18:56] VITALS: BP 151/78
== END 2020-12-14 18:58 ==
LOC: ED 16:52
DX: G89.29 Other chronic pain (principal); M79.661 Pain in right lower leg; I10 Essential (primary) hypertension; E11.9 Type 2 diabetes mellitus without complications; E03.9 Hypothyroidism, unspecified; J44.9 Chronic obstructive pulmonary disease, unspecified; G20 Parkinson's disease
CPT/HCPCS: 36415; 80048; 82040; 85025; 85651; 86140; 96372; 99283; J1170